=== PATIENT | male | born 1940 | race Caucasian/White ===

== ENCOUNTER → 2018-09-01 | Outpatient (CLI) | payer OTHER ==
[~2018-09-01] MED LIST: IOPAMIDOL (ISOVUE 370) 100 ML BTL IV ONE
== END ==
LOC: FIMAGING 14:24
PROVIDERS: ATTEND Internal Medicine Cardiovascular Disease
DX: R93.1 Abnormal findings on diagnostic imaging of heart and coronary circulation (principal)
CPT/HCPCS: 71275; Q9967; 82565-PO